=== PATIENT | female | born 1980 | race Caucasian/White ===

== ENCOUNTER 2021-05-05 13:41 | Inpatient (IN) | payer OTHER ==
[~2021-05-05] VITALS: Ht 188 cm; Wt 136.1 kg
--- NOTE | 2021-05-05 13:52 | NUR ---
BIB SELF C/O FEVER, FATIGUE, SOB SINCE LAST WEEK. AAIX4, BREATHING EVEN AND UNLABORED. VS STABLE, ON MONITOR. AWAITING MD FOR EVAL.
--- NOTE | 2021-05-05 14:09 | NUR ---
URINE SAMPLE OBTAINED AND SENT TO LAB
--- NOTE | 2021-05-05 14:09 | NUR ---
AT BEDSIDE FOR EVAL.
--- NOTE | 2021-05-05 14:47 | NUR ---
LAC #20G S/L; PATENT AND INTACT
--- NOTE | 2021-05-05 14:48 | NUR ---
berlin sample obtained and sent to lab
--- NOTE | 2021-05-05 14:49 | NUR ---
ekg being done at bedside
--- NOTE | 2021-05-05 14:53 | NUR ---
MANJULA AYALA COLLECTED AND SENT TO LAB
--- NOTE | 2021-05-05 14:54 | NUR ---
DENTAL FLOSS PACKER AT PT'S BEDSIDE
[2021-05-05 14:55] LABS: BASOPHILS # (AUTO) 0.1 K/uL (0.0-0.2); BASOPHILS % (AUTO) 0.8 % (0.0-2.0); HEMATOCRIT 47 % (33-45); HEMOGLOBIN 16.1 g/dL (11.5-14.8); LYMPHOCYTES # (AUTO) 2.1 K/uL (0.8-4.8); LYMPHOCYTES % (AUTO) 28.6 % (20.0-44.0); MEAN CORPUSCULAR HGB CONC 34 g/dl (31.0-36.0); MEAN CORPUSCULAR VOLUME 84 fL (82-100); MONOCYTES # (AUTO) 0.5 K/uL (0.1-1.30); MONOCYTES % (AUTO) 6.9 % (2.0-12.0); NEUTROPHILS # (AUTO) 4.6 K/uL (1.8-8.9); NEUTROPHILS % (AUTO) 62.7 % (43.0-81.0); PLATELET COUNT (AUTO) 214 K/uL (150-450); RED BLOOD CELL COUNT(AUTO) 5.64 MIL/uL (4.0-5.2); WHITE BLOOD COUNT (AUTO) 7.3 K/uL (4.3-11.0)
[2021-05-05 15:52] LABS: CALCIUM, SERUM 8.4 mg/dL (8.5-10.1); CARBON DIOXIDE 18 mmol/L (21-32); CHLORIDE 85 mmol/L (98-107); CREATININE 1.5 mg/dL (0.6-1.3); POTASSIUM 4.7 mmol/L (3.5-5.1); UREA NITROGEN, BLOOD 15 mg/dL (7-18)
[2021-05-05 16:06] LABS: GLUCOSE 765 mg/dL (74-106); SODIUM SERUM 119 mmol/L (136-145)
[2021-05-05] MEDS ORDERED: INSULIN REGULAR, HUMAN 100 UNIT in IV NS 0.9% 99 ML IV PRN (16:30)
[2021-05-05] MEDS ORDERED: IV NS 0.9% 1,000 ML BAG IV ONE (16:30)
[2021-05-05 16:33] LABS: ALANINE AMINOTRANSFERASE 42 U/L (12-78); ALBUMIN 3.8 g/dL (3.4-5.0); ALKALINE PHOSPHATASE 125 U/L (46-116); ASPARTATE AMINOTRANSFERASE 15 U/L (15-37); BILIRUBIN,DIRECT 0.1 mg/dL (0.0-0.2); BILIRUBIN,TOTAL 0.6 mg/dL (0.2-1.0); TOTAL PROTEIN, SERUM 7.4 g/dL (6.4-8.2)
--- NOTE | 2021-05-05 18:43 | NUR ---
POC BS 534 RAC #20G S/L INSULIN DRIP 7 UNITS/HR. WILL REASSESS BS IN 1 HR
--- NOTE | 2021-05-05 19:42 | NUR ---
POC BS 355; RAC #20G S/L INSULINE 7 UNITS/ HR STILL INFUSING
--- NOTE | 2021-05-05 20:16 | NUR ---
MRSA SWAB COLLECTED AND SENT TO LAB. PATIENT'S BELONGINGS LIST DONE.
--- NOTE | 2021-05-05 22:36 | NUR ---
BS 242; TITTRATED INSULIN 5 UNIT/HR
[2021-05-05] MEDS ORDERED: IV NS 0.9% 1,000 ML IV PRN (23:00)
[2021-05-05] MEDS ORDERED: HEPARIN SODIUM, PORCINE 5000 UNITS/1 ML VIAL SQ SCH (23:00)
[2021-05-05] MEDS ORDERED: ACETAMINOPHEN 325 MG TABLET PO PRN (23:00)
[2021-05-05] MEDS ORDERED: ONDANSETRON HCL/PF 4 MG/2 ML VIAL IVP PRN (23:00)
--- NOTE | 2021-05-05 23:06 | NUR ---
PT IS REFUSING A SECOND IV LINE AND BMP (BLOOD DRAW). HAD A LONG DISCUSSION WITH THE PT AT BED SIDE AND CONVIENCED THE PT FOR BMP. HOWEVER SHE'S STILL REFUSING THE SECOND LINE.
[2021-05-05 23:53] LABS: CALCIUM, SERUM 8.5 mg/dL (8.5-10.1); CREATININE 1.1 mg/dL (0.6-1.3); POTASSIUM 3.7 mmol/L (3.5-5.1)
[2021-05-05] MEDS ORDERED: PANTOPRAZOLE 40 MG VIAL ONE (23:57)
[2021-05-06] MEDS ORDERED: PANTOPRAZOLE 40 MG VIAL IV SCH
--- NOTE | 2021-05-06 00:01 | NUR ---
BS 193; TITTRATED INSULIN 3.66 UNIT/HR PER PROTOCOL RAC#20G S/L
[2021-05-06] MEDS ORDERED: INSULIN REGULAR, HUMAN 100 UNIT/ML 3 ML VIAL SQ PRN (01:30)
[2021-05-06] MEDS ORDERED: INSULIN GLARGINE, 100 UNIT/ML CARTRIDGE SQ SCH (01:30)
[2021-05-06] MEDS ORDERED: DEXTROSE 50%-WATER 50 ML DISP.SYRIN IV PRN (01:30)
[2021-05-06] MEDS ORDERED: INSULIN GLARGINE, 100 UNIT/ML CARTRIDGE SQ ONE (03:36)
--- NOTE | 2021-05-06 08:20 | NUR ---
ROOM 315-2
--- NOTE | 2021-05-06 08:22 | NUR ---
REPORT GIVEN TO NURSE GUALLPA FOR MARITZA
[2021-05-06] MEDS: BLOOD SUGAR DIAGNOSTIC 1 EACH STRIP IN SCH ×2 (08:23→13:05)
--- NOTE | 2021-05-06 08:37 | NUR ---
THE PATIENT IS TRANSFERED TO ROOM 315-2 IN STABLE CONDITION AND PER POLICY.
[2021-05-06 09:00] VITALS: BP 131/95
[2021-05-06] MEDS ORDERED: HEPARIN SODIUM, PORCINE 5000 UNITS/1 ML VIAL SQ SCH (09:00)
--- NOTE | 2021-05-06 09:15 | NUR ---
MS RN NOTE ADMITTED FROM ER TRANSPORTED VIA GURNEY ACCOMPANIED BY 2 NURSES. PATIENT TRANSFERED TO BED AND COMFORT MEASURES PROVIDED. PATIENT IS ON ROOM AIR WITH EQUAL AND UNLABORED BREATHING WITH NO SIGNS OF RESPIRATORY DISTRESS. PATIENT WITH IV ACCESS ON THE RIGHT ARM G20, ON SALINE LOCK, PATENT AND INTACT. PATIENT IS AMBULATORY AND CONTINENT OF BOTH BOWEL AND BLADDER. COMFORT MEASURES PROVIDED. DR. DEAN NOTIFIED OF ADMISSION. ADMISSION PROTOCOL AND HEALTH TEACHING DONE REGARDING DISEASE PROCESS AND MANAGEMENT. VERBALIZED UNDERSTANDING AND APPRECIATION. SAFETY MEASURES ENSURED WITH SIDE RAILS RAISED, BED LOCKED AND AT LOW POSITION. CALL LIGHT WITHIN REACH AT ALL TIMES. WILL CONTINUE TO MONITOR PATIENT.
[2021-05-06] MEDS ORDERED: SPIR25TA6 PO (09:45)
[2021-05-06] MEDS ORDERED: ESTR2TAB PO (09:45)
--- NOTE | 2021-05-06 13:05 | NUR ---
MS RN NOTE PATIENT SEEN BY DR. DEAN WITH ORDER TO DISCHARGE PATIENT. HEALTH TEACHING DONE REGARDING DISCHARGE AND VERBALIZED UNDERSTANDING AND APPRECIATION. PATIENT REFUSED HEPARIN AND INSULIN BECAUSE SHE DOESN'T WANT ANY INJECTION. REVIEWED PATIENT'S RIGHTS AND REPERCUSIIONS OF ACTION/ REFUSAL. VERBALIZED UNDERSTANDING. IV ACCESS REMOVED PER REQUEST. PROCEDURE TOLERATED WELL. WILL CONTINUE TO MONITOR PATIENT.
--- NOTE | 2021-05-06 15:00 | NUR ---
MS RN NOTE PATIENT DISCHARGED ORDERED. IN STABLE CONDITION. ACCOMPANIED BY 2 NURSES TO LOBBY. PATIENT PICKED UP BY TRANSPORT SET UP PER PATIENT'S REQUEST THROUGH CASE MANAGEMENT. ENDORSED ACCORDINGLY.
== END 2021-05-06 14:45 | disposition home or self-care (01) | DRG 420 ==
LOC: ER 13:45 → TRANSITION 20:19 → MED 05-06 09:37
PROVIDERS: ADMIT Nurse Practitioner Acute Care
DX: E11.10 Type 2 diabetes mellitus with ketoacidosis without coma (principal); N17.0 Acute kidney failure with tubular necrosis; D68.59 Other primary thrombophilia; E86.1 Hypovolemia; Z20.822 Contact with and (suspected) exposure to COVID-19; E66.01 Morbid (severe) obesity due to excess calories; Z68.38 Body mass index [BMI] 38.0-38.9, adult
CPT/HCPCS: 36415; 71045-TC; 80048-TC; 80076-TC; 82962-TC; 83880; 84484-TC; 85025-TC; 87081-TC; C9113; C9803; G0378; J1644; J1815; J2405; J7030